=== PATIENT | female | born 1965 | race Caucasian/White ===

== ENCOUNTER 2025-07-30 16:23 | Emergency (ER) | payer OTHER, SELFPAY ==
[2025-07-30 16:38] VITALS: BP 145/64; PULSE 62; RESP 18; TEMP 36.7; O2SAT 97
--- NOTE | 2025-07-30 16:38 | ED.FALL ---
HPI - Fall General Chief Complaint: Fall Stated Complaint: Fell last night; black eye, face swollen, blurry v Time Seen by Provider: 07/30/25 16:45 Source: patient, family, RN notes reviewed and old records reviewed Mode of arrival: ambulatory Limitations: no limitations History of Present Illness HPI Narrative: 59 [facility] old [facility] with complaints of sustaining a fall last night when she tripped over her dog and hit her face on the stove. She denies any LOC at time of fall or any history of taking blood thinners. Patient reports that as day has progressed today she has had more swelling to her left forehead and bruising to the right and left eye with more pain under her left eye, She also has pain and bruising to her right jaw area. 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 Patient reports that she has had some dizziness today and also nausea and left eye is blurry.She also reports that she has some posterior neck pain with previous history of spinal fusion C5-6, denies any tingling or numbness to her extremities full ROM noted. MD complaint: fall Onset (ago): day(s) (since last evening) Fall from: standing Fall witnessed: yes, by family Place fall occurred: home Loss of consciousness: none Symptoms prior to fall: none Location of injury: head, face and neck Severity scale (1-10): 4 Related Data Home Medications ?Medication ?Instructions ?Recorded ?Confirmed ?Last Taken ?Type levothyroxine 125 mcg tablet mcg 07/30/25 Unknown History Allergies Allergy/AdvReac Type Severity Reaction Status Date / Time No Known Allergies Allergy Verified 07/30/25 16:48 Review of Systems Review of Systems: CONSTITUTIONAL: Denies fever, chills, or sweats. EYES: reports left eye is blurry, no redness, or discharge. swelling and bruising to bilateral eyes with pain under left eye ENT: Denies rhinorrhea, congestion, sore throat, or otalgia. CARDIOVASCULAR: Denies chest pain, palpitations, or edema. RESPIRATORY: Denies cough or dyspnea. GASTROINTESTINAL: Denies abdominal pain,+ nausea, no vomiting, no diarrhea. GENITOURINARY: Denies dysuria or hematuria. SKIN: Denies rash or itching. has bruising to right jaw and left forehead and bilateral eyes with pain under left eye MUSCULOSKELETAL: Denies back pain, reports posterior neck pain has had previous neck surgery fusion C5-6,, or myalgia. NEUROLOGIC: Denies acute headache, numbness, or weakness., states dizziness PSYCHIATRIC: Denies anxiety or depression. All systems reviewed & are unremarkable except as noted in HPI and below PMFSH Past Medical History Medical History (Updated 07/31/25 @ 11:13 by Isabella Scherer APRN) Hypothyroidism Surgical History Surgical History (Updated 07/31/25 @ 10:52 by Isabella Scherer APRN) Previous section History of left hip replacement H/O repair of rotator cuff bilateral Hx of cholecystectomy H/O cervical spine surgery fusion C5-6 Social History Social History (Updated 07/31/25 @ 10:49 by Isabella Scherer APRN) Smoking status: Never smoker Alcohol intake: current Alcohol use details: social Substance use type: does not use Living arrangements: with family Gender identity (if verbalized by the patient): Female Comments At time of signature, agree with nursing past medical, surgical, social and family history. There is no relevant family history pertinent to the presenting complaint Exam Narrative: GENERAL: Well-appearing, well-nourished, and in no acute distress. HEAD: Normocephalic, atraumatic. EYES: PERRLA and EOMI.reports left eye is blurry, visual acuity right 20/20, right 20/50, no nystagmus noted ENT: Nares clear, no rhinorrhea or epistaxis. Mucous membranes moist.TM's normal throat pink with no swelling noted NECK: Supple.no lymphadenopathy reports pain to posterior neck since fall, has had prior spinal fusion CHEST: Clear to auscultation. No respiratory distress. SAO2 97% on room air HEART: Regular rate and rhythm. No murmur heard. Normal peripheral pulses. ABDOMEN: Soft, nontender, nondistended, normal active bowel sounds.reports nausea EXTREMITIES: Normal range of motion. No edema. full ROM of all extremities, no lag noted of arms denies any tingling or numbness to arms. SKIN: Warm, dry, no rash.bruising to right jaw left forehead and bilateral eyes with pain increase voiced under left eye. NEURO: No focal deficits. Alert and oriented x3.reports feelings of dizziness Course Course Emergency Course: Patient is aware of diagnosis, understands and agrees to treatment plan.? Anticipatory guidance given.? Patient agrees to follow-up as directed and is aware of reasons to seek care at the emergency department. Portions of this record may have been created with voice recognition software Level of Care: Express Care Visit Vital Signs Vital signs: Vital Signs Temperature 36.7 C 07/30/25 16:38 Pulse Rate 62 07/30/25 16:38 Respiratory Rate 18 07/30/25 16:38 Blood Pressure 145/64 H 07/30/25 16:38 Pulse Oximetry 97 07/30/25 16:38 Oxygen Delivery Room Air 07/30/25 16:38 Temperature 36.7 C 07/30/25 16:38 Pulse Rate 62 07/30/25 16:38 Respiratory Rate 18 07/30/25 16:38 Blood Pressure 145/64 H 07/30/25 16:38 Pulse Oximetry 97 07/30/25 16:38 Oxygen Delivery Room Air 07/30/25 16:38 Reviewed Transfer Transfered to: [facility] ([facility]) Transportation: Other (per private car) Transfer rationale: fall with concern for possible orbital fracture, head injury and neck pain needs further evaluation and advanced imaging Accepting physician: ED physician Transfer comments: To [facility] for further evaluation with spouse per private car MDM - Fall MDM Narrative Medical decision making narrative: Patient will multiple complaints and increased symptoms since sustaining fall at home last night. Patient recommended to go to ED for further evaluation and imaging. Patient reluctant to go due to cost involved with ED visit but then did agree to go to [facility] since she does work for [employer].[id number] Call placed to ED [facility] and medical complaints,findings, VS. PMH reviewed with Soledad HAQUE with ED physician accepting oralia Differential Diagnosis Differential diagnosis: Likely concussion without loss of consciousness and other (fracture of orbit, neck pain with prior spinal fusion,closed head injury) Medical Records Attestation: I reviewed the patient's medical records. Critical Care Time Critical Care Time Critical Care Time: No Discharge Plan Discharge Clinical Impression: Closed head injury without loss of consciousness, Neck pain, Eye swelling, bilateral Patient Disposition: Acute Care Hospital Condition: Stable Patient Language: Armenian Prescriptions: No Action levothyroxine 125 mcg tablet Follow-up/Referrals: Duane,Manuela Grant MD [Primary Care Provider, Unknown] Time of Disposition: 17:22 Quality [place] Coma Scale Eyes: Open Verbal: Oriented and Alert Motor: Follows Commands [place] Coma Total Score: 15
== END 2025-07-30 17:30 | disposition short-term general hospital (02) ==
PROVIDERS: Emergency Provider Registered Nurse; PCP Internal Medicine
DX: S09.90XA Unspecified injury of head, initial encounter (principal); W01.0XXA Fall on same level from slipping, tripping and stumbling without subsequent striking against object, initial encounter; M54.2 Cervicalgia; H05.223 Edema of bilateral orbit; E03.9 Hypothyroidism, unspecified; Z96.642 Presence of left artificial hip joint
CPT/HCPCS: 99212; G0463